=== PATIENT | female | born 1990 | race Caucasian/White ===

== ENCOUNTER 2018-04-15 16:07 | Emergency (ER) | payer OTHER ==
[~2018-04-15] VITALS: Ht 157.5 cm; Wt 52.2 kg
[2018-04-15] MEDS ORDERED: CELECOXIB200 MG PO (20:41)
[2018-04-15] MEDS ORDERED: ULTRACET PO (20:41)
[2018-04-15] MEDS ORDERED: INTESTINEX680 M1 PO (20:41)
== END 2018-04-15 20:45 | disposition home or self-care (01) ==
LOC: ER 16:07
DX: R00.2 Palpitations (principal); T39.1X5A Adverse effect of 4-Aminophenol derivatives, initial encounter; Y92.89 Other specified places as the place of occurrence of the external cause

== ENCOUNTER 2018-12-13 13:03 | Emergency (ER) | payer OTHER ==
[~2018-12-13] VITALS: Ht 157.5 cm; Wt 52.2 kg
[~2018-12-13 13:03] MED LIST: CELECOXIB200 MG PO; INTESTINEX680 M1 PO; ULTRACET PO
[2018-12-13] MEDS ORDERED: NORFLEX100MG PO (15:25)
[2018-12-13] MEDS ORDERED: NAPROXEN500 MG PO (15:25)
== END 2018-12-13 15:42 | disposition home or self-care (01) ==
LOC: ER 13:03
DX: M62.838 Other muscle spasm (principal); M54.2 Cervicalgia

== ENCOUNTER 2021-03-28 05:19 | Inpatient (IN) | payer OTHER ==
[~2021-03-28] VITALS: Ht 157.5 cm; Wt 61.2 kg
[~2021-03-28 05:19] MED LIST changes: +NAPROXEN500 MG PO; +NORFLEX100MG PO
[2021-03-28] MEDS ORDERED: CEFADROXIL500 MG (09:46)
[2021-03-28] MEDS ORDERED: CONCEPT DHA CA1 EACH (09:47)
== END 2021-03-30 11:33 | disposition home or self-care (01) | DRG 807 ==
LOC: OB/GYN 05:19 → LDR 05:19 → OB/GYN 11:50
PROVIDERS: ADMIT Obstetrics & Gynecology; ATTEND Obstetrics & Gynecology
PROC: 10E0XZZ Delivery of Products of Conception, External Approach (ICD-10-PCS; principal; 2021-03-28)
PROC: 0HQ9XZZ Repair Perineum Skin, External Approach (ICD-10-PCS; 2021-03-28)
PROC: 10907ZC Drainage of Amniotic Fluid, Therapeutic from Products of Conception, Via Natural or Artificial Opening (ICD-10-PCS; 2021-03-28)
PROC: 3E0P7VZ Introduction of Hormone into Female Reproductive, Via Natural or Artificial Opening (ICD-10-PCS; 2021-03-28)
PROC: 4A1HXFZ Monitoring of Products of Conception, Cardiac Rhythm, External Approach (ICD-10-PCS; 2021-03-28)
DX: O70.0 First degree perineal laceration during delivery (principal); Z37.0 Single live birth; O99.824 Streptococcus B carrier state complicating childbirth; Z3A.39 39 weeks gestation of pregnancy

== ENCOUNTER 2021-09-12 07:17 | Day surgery (SDC) | payer OTHER ==
[~2021-09-12 07:17] MED LIST changes: +CEFADROXIL500 MG; +CONCEPT DHA CA1 EACH
== END 2021-09-12 17:15 | disposition home or self-care (01) ==
LOC: CIR.AMB 07:17
PROVIDERS: ATTEND Obstetrics & Gynecology
DX: N70.91 Salpingitis, unspecified (principal)

== ENCOUNTER 2022-09-12 10:45 | Emergency (ER) | payer OTHER ==
[~2022-09-12] VITALS: Ht 157.5 cm; Wt 49.0 kg
[2022-09-12] MEDS ORDERED: MACROBID 100 M100 MG PO (15:32)
== END 2022-09-12 15:39 | disposition home or self-care (01) ==
LOC: ER 10:45
DX: R10.2 Pelvic and perineal pain (principal)